=== PATIENT | male | born 1950 | race Hispanic/Latino ===

== ENCOUNTER 2017-12-12 09:04 | Observation (INO) | payer MEDICARE, OTHER ==
[2017-12-12 10:04] LABS: BASOPHILS % (AUTO) 0.7 % (0.0-5.0); EOSINOPHILS % (AUTO) 1.1 % (0.0-8.0); LYMPHOCYTES % (AUTO) 16.7 % (21.0-51.0); MEAN CORPUSCULAR HEMOGLOBIN 30.5 pg (27.0-33.0); MEAN CORPUSCULAR HGB CONC 34.8 g/dL (32.0-36.0); MEAN CORPUSCULAR VOLUME 87.5 fL (79-99); MONOCYTES % (AUTO) 7.2 % (3.0-13.0); NEUTROPHILS % (AUTO) 74.3 % (40.0-77.0); PLATELET COUNT (AUTO) 213 K/uL (130-400); RED BLOOD CELL COUNT(AUTO) 5.14 MIL/uL (4.50-6.20); RED CELL DISTRIBUTION WIDTH 13.6 % (11.0-15.5); WHITE BLOOD COUNT (AUTO) 9.1 K/uL (4.8-10.8)
[2017-12-12 10:16] LABS: POTASSIUM 3.4 mmol/L (3.5-5.1)
[2017-12-12 10:20] LABS: ALBUMIN 3.8 g/dL (3.5-5.0); BILIRUBIN,TOTAL 0.6 mg/dL (0.2-1.0); TOTAL PROTEIN, SERUM 7.3 g/dL (6.0-8.3)
[2017-12-12 11:00] LABS: INR 0.94 (0.85-1.15); PARTIAL THROMBOPLASTIN TIME 26.1 SEC (26.3-35.5); PROTHROMBIN TIME 9.9 SEC (9.6-11.6)
[2017-12-12 11:04] LABS: BILIRUBIN,URINE Negative (NEGATIVE); COLOR,URINE Yellow (YELLOW); GLUCOSE, URINE (UA) Negative (NEGATIVE); KETONES,URINE Negative (NEGATIVE); LEUKOCYTE ESTERASE ,URINE Negative (NEGATIVE); NITRATE,URINE Negative (NEGATIVE); OCCULT BLOOD,URINE Negative (NEGATIVE); PH,URINE 7.5 (5.0-8.0); PROTEIN,URINE Negative (NEGATIVE)
[2017-12-12 11:06] LABS: APPEARANCE,URINE CLEAR (CLEAR)
[2017-12-12] MEDS ORDERED: POTASSIUM CHLORIDE 20 MEQ ERTAB PO PRN (11:15)
[2017-12-12] MEDS ORDERED: ACETAMINOPHEN 325 MG TAB PO PRN ×2 (11:15)
[2017-12-12] MEDS ORDERED: POTASSIUM CHLORIDE 10% ELIXIR 20 MEQ/15 ML UDCUP PO PRN (11:15)
[2017-12-12] MEDS ORDERED: POTASSIUM CHLORIDE 20MEQ/100ML 100 ML IV PRN (11:15)
[2017-12-12] MEDS ORDERED: LIDOCAINE HCL-MPF 1% 2ML VIAL IVP PRN (11:15)
[2017-12-12] MEDS ORDERED: MORPHINE SULFATE 2 MG/ML 1ML SYG IVP PRN (11:15)
[2017-12-12] MEDS ORDERED: ONDANSETRON HCL 4 MG/2 ML VIAL IV PRN (11:15)
[2017-12-12] MEDS ORDERED: NITROGLYCERIN 0.4 MG SL TAB SL PRN (11:15)
[2017-12-12] MEDS ORDERED: MAG HYDROX/AL HYDROX/SIMETH ES 30 ML SUSP UDCUP PO PRN (11:15)
[2017-12-12] MEDS ORDERED: ACETAMINOPHEN-CODEINE 300/30MG TAB PO PRN ×2 (11:15)
[2017-12-12] MEDS ORDERED: GUAIFENESIN-DM 200/20 MG 10 ML PO PRN (11:15)
[2017-12-12] MEDS ORDERED: LACTULOSE 20 GM/30 ML UDCUP PO PRN (11:15)
[2017-12-12] MEDS ORDERED: MORPHINE SULFATE 4 MG/1ML SYG IVP PRN (11:15)
[2017-12-12] MEDS ORDERED: HYDRALAZINE HCL 20 MG/ML VIAL IV PRN (11:15)
[2017-12-12 12:00] VITALS: BP 156/73
[2017-12-12 12:00] LABS: HEMATOCRIT 44.6 % (42-54); MEAN CORPUSCULAR HEMOGLOBIN 30.5 pg (27.0-33.0); MEAN CORPUSCULAR HGB CONC 34.8 g/dL (32.0-36.0); MEAN CORPUSCULAR VOLUME 87.7 fL (79-99); PLATELET COUNT (AUTO) 230 K/uL (130-400); RED BLOOD CELL COUNT(AUTO) 5.09 MIL/uL (4.50-6.20); RED CELL DISTRIBUTION WIDTH 13.3 % (11.0-15.5); WHITE BLOOD COUNT (AUTO) 8.8 K/uL (4.8-10.8)
[2017-12-12] MEDS ORDERED: AMLO5TAB4 PO (12:04)
[2017-12-12] MEDS ORDERED: ASPI-1197 PO (12:04)
[2017-12-12 12:17] LABS: INR 0.93 (0.85-1.15); PROTHROMBIN TIME 9.8 SEC (9.6-11.6)
[2017-12-12 12:28] LABS: ALBUMIN 3.7 g/dL (3.5-5.0); BILIRUBIN,TOTAL 0.5 mg/dL (0.2-1.0); CREATININE 0.9 mg/dL (0.5-1.5); POTASSIUM 3.6 mmol/L (3.5-5.1); TOTAL PROTEIN, SERUM 7.2 g/dL (6.0-8.3)
[2017-12-12 16:00] VITALS: BP 139/71
[2017-12-12 19:59] LABS: APPEARANCE,URINE Clear (CLEAR); BILIRUBIN,URINE Negative (NEGATIVE); COLOR,URINE Yellow (YELLOW); GLUCOSE, URINE (UA) Negative (NEGATIVE); KETONES,URINE Negative (NEGATIVE); LEUKOCYTE ESTERASE ,URINE Negative (NEGATIVE); NITRATE,URINE Negative (NEGATIVE); OCCULT BLOOD,URINE Negative (NEGATIVE); PH,URINE 6.5 (5.0-8.0); PROTEIN,URINE Negative (NEGATIVE)
[2017-12-12 20:00] VITALS: BP 163/77
[2017-12-12] MEDS: FAMOTIDINE 20MG TAB 20 MG TAB PO SCH (22:27)
[2017-12-12] MEDS: METOPROLOL TARTRATE 25 MG TAB PO SCH (22:27)
[2017-12-13] VITALS: BP 127/73
[2017-12-13 04:00] VITALS: BP 136/76
[2017-12-13 04:58] LABS: HEMATOCRIT 40.5 % (42-54); MEAN CORPUSCULAR HEMOGLOBIN 30.9 pg (27.0-33.0); MEAN CORPUSCULAR HGB CONC 35.5 g/dL (32.0-36.0); MEAN CORPUSCULAR VOLUME 87.2 fL (79-99); PLATELET COUNT (AUTO) 226 K/uL (130-400); RED BLOOD CELL COUNT(AUTO) 4.65 MIL/uL (4.50-6.20); RED CELL DISTRIBUTION WIDTH 13.5 % (11.0-15.5); WHITE BLOOD COUNT (AUTO) 7.1 K/uL (4.8-10.8)
[2017-12-13 05:20] LABS: CREATININE 0.9 mg/dL (0.5-1.5); POTASSIUM 3.8 mmol/L (3.5-5.1)
[2017-12-13 07:00] VITALS: BP 138/75
[2017-12-13] MEDS ORDERED: ATORVASTATIN CALCIUM 40 MG TABLET PO SCH (09:00)
[2017-12-13] MEDS ORDERED: ENOXAPARIN SODIUM 40 MG/0.4 ML SYRINGE SQ SCH (09:00)
[2017-12-13] MEDS ORDERED: ASPIRIN 325 MG TABLET PO SCH (09:00)
[2017-12-13] MEDS: FAMOTIDINE 20MG TAB 20 MG TAB PO SCH (09:12)
[2017-12-13] MEDS: METOPROLOL TARTRATE 25 MG TAB PO SCH (09:12)
[2017-12-13] MEDS: TRAMADOL HCL 50 MG TABLET PO PRN ×2 (09:28→11:57)
[2017-12-13] MEDS ORDERED: NICOTINE 21 MG/ 24 HR PATCH TD SCH (11:30)
[2017-12-13 12:06] VITALS: BP 137/73
[2017-12-13 16:00] VITALS: BP 159/79
[2017-12-14] MEDS ORDERED: AMLODIPINE BESYLATE 5 MG TAB PO SCH (09:00)
[2017-12-14] MEDS ORDERED: ASPIRIN 81MG TAB.CHEW PO SCH (09:00)
[2017-12-24] MEDS ORDERED: ATOR40TA71 PO (11:55)
[2018-01-06] MEDS ORDERED: TRAM50TA4 PO (14:47)
== END 2017-12-13 19:25 | disposition home or self-care (01) ==
LOC: EDH 09:04 → 3DH 09:18
PROVIDERS: ADMIT Internal Medicine; ATTEND Internal Medicine
DX: I73.9 Peripheral vascular disease, unspecified (principal); I10 Essential (primary) hypertension; F17.210 Nicotine dependence, cigarettes, uncomplicated; Z82.49 Family history of ischemic heart disease and other diseases of the circulatory system
CPT/HCPCS: 36415 ×2; 80048; 80053 ×2; 81003; 85025; 85027 ×2; 85610 ×2; 85730; 93925; 96372; 99285; A4510; G0378 ×34; J1650

== ENCOUNTER 2017-12-26 05:30 | Day surgery (SDC) | payer MEDICARE, OTHER ==
[2017-12-24 11:33] LABS: APPEARANCE,URINE Clear (CLEAR); BILIRUBIN,URINE Negative (NEGATIVE); COLOR,URINE Yellow (YELLOW); GLUCOSE, URINE (UA) Negative (NEGATIVE); KETONES,URINE Negative (NEGATIVE); LEUKOCYTE ESTERASE ,URINE Negative (NEGATIVE); NITRATE,URINE Negative (NEGATIVE); OCCULT BLOOD,URINE Negative (NEGATIVE); PROTEIN,URINE Negative (NEGATIVE)
[2017-12-24 11:35] LABS: BASOPHILS % (AUTO) 0.8 % (0.0-5.0); EOSINOPHILS % (AUTO) 1.4 % (0.0-8.0); HEMATOCRIT 46.3 % (42-54); LYMPHOCYTES % (AUTO) 19.3 % (21.0-51.0); MEAN CORPUSCULAR HGB CONC 34.1 g/dL (32.0-36.0); MONOCYTES % (AUTO) 9.2 % (3.0-13.0); NEUTROPHILS % (AUTO) 69.3 % (40.0-77.0); PLATELET COUNT (AUTO) 269 K/uL (130-400); RED BLOOD CELL COUNT(AUTO) 5.27 MIL/uL (4.50-6.20); RED CELL DISTRIBUTION WIDTH 13.6 % (11.0-15.5); WHITE BLOOD COUNT (AUTO) 9.2 K/uL (4.8-10.8)
[2017-12-24 11:40] LABS: POTASSIUM 4.2 mmol/L (3.5-5.1)
[2017-12-24 11:52] VITALS: BP 140/71
[2017-12-24 12:05] LABS: INR 0.96 (0.85-1.15); PARTIAL THROMBOPLASTIN TIME 24.5 SEC (26.3-35.5); PROTHROMBIN TIME 9.9 SEC (9.6-11.6)
[2017-12-26] VITALS (13 sets, daily range): BP systolic 124–162; BP diastolic 63–85
[~2017-12-26] VITALS: Ht 180.3 cm; Wt 83.4 kg
[~2017-12-26 05:30] MED LIST: AMLO5TAB4 PO; ASPI-1197 PO; ATOR40TA71 PO
[2017-12-26] MEDS ORDERED: SODIUM CHLORIDE 0.9% 1000ML 1,000 ML IV ONE (06:17)
[2017-12-26] MEDS ORDERED: HEPARIN SODIUM 1000UNIT/ML 10ML VIAL ONE (07:13)
[2017-12-26] MEDS ORDERED: ISOVUE-300 100 ML VIAL IV ONE (07:13)
[2017-12-26] MEDS ORDERED: NITROGLYCERIN 5 MG/ML 10 ML VIAL IV ONE (07:13)
[2017-12-26] MEDS ORDERED: LIDOCAINE HCL 2% 20ML ONE (07:14)
[2017-12-26] MEDS ORDERED: SODIUM CHLORIDE 0.9% 1000ML 1,000 ML IV SCH (08:47)
[2017-12-26] MEDS ORDERED: ACETAMINOPHEN EXTRA STRENGTH 500 MG TABLET PO SCH (09:30)
[2018-01-06] MEDS ORDERED: TRAM50TA4 PO (14:47)
== END 2017-12-26 14:50 | disposition home or self-care (01) ==
LOC: DAH 05:30
PROVIDERS: ATTEND Internal Medicine Cardiovascular Disease
DX: I73.89 Other specified peripheral vascular diseases (principal); I10 Essential (primary) hypertension; F17.200 Nicotine dependence, unspecified, uncomplicated; Z82.49 Family history of ischemic heart disease and other diseases of the circulatory system; Z79.82 Long term (current) use of aspirin; Z79.899 Other long term (current) drug therapy
CPT/HCPCS: 36246; 36415; 71045; 75625; 75716; 80048; 81003; 85025; 85610; 85730; 93005; A4606; C1760; C1769; C1894; J1644; J3490 ×2; J7030; Q9967

== ENCOUNTER 2018-01-07 10:30 | Inpatient (IN) | payer MEDICARE ==
[2018-01-06 14:28] LABS: HEMOGLOBIN A1C 5.6 % (4.0-6.0)
[2018-01-06 14:30] VITALS: BP 161/71
[2018-01-06 14:39] LABS: BASOPHILS % (AUTO) 1.3 % (0.0-5.0); EOSINOPHILS % (AUTO) 1.7 % (0.0-8.0); HEMATOCRIT 45.1 % (42-54); LYMPHOCYTES % (AUTO) 23.6 % (21.0-51.0); MEAN CORPUSCULAR HEMOGLOBIN 30.7 pg (27.0-33.0); MEAN CORPUSCULAR HGB CONC 34.9 g/dL (32.0-36.0); MONOCYTES % (AUTO) 7.7 % (3.0-13.0); NEUTROPHILS % (AUTO) 65.7 % (40.0-77.0); NUCLEATED RED BLOOD CELLS 0.1 % (0.0-0.19); PLATELET COUNT (AUTO) 279 K/uL (130-400); RED BLOOD CELL COUNT(AUTO) 5.13 MIL/uL (4.50-6.20); RED CELL DISTRIBUTION WIDTH 13.2 % (11.0-15.5); WHITE BLOOD COUNT (AUTO) 8.9 K/uL (4.8-10.8)
[2018-01-06 14:40] LABS: INR 0.98 (0.85-1.15); PARTIAL THROMBOPLASTIN TIME 27.1 SEC (26.3-35.5); PROTHROMBIN TIME 10.3 SEC (9.6-11.6)
[2018-01-06 14:47] LABS: BILIRUBIN,TOTAL 0.6 mg/dL (0.2-1.0); CREATININE 1.1 mg/dL (0.5-1.5); POTASSIUM 4.2 mmol/L (3.5-5.1); TOTAL PROTEIN, SERUM 7.4 g/dL (6.0-8.3)
[~2018-01-07] VITALS: Ht 175.3 cm; Wt 77.1 kg
[~2018-01-07 10:30] MED LIST changes: +CEFUROXIME SODIUM 1.5 GM VIAL IVP SCH; +TRAM50TA4 PO
[2018-01-08] VITALS (23 sets, daily range): BP systolic 128–168; BP diastolic 60–80
[2018-01-08] MEDS: CEFUROXIME SODIUM 1.5 GM VIAL IVP SCH ×2 (08:30→11:55)
[2018-01-08] MEDS ORDERED: SODIUM CHLORIDE 0.9% 1000ML 1,000 ML IV ONE (08:37)
[2018-01-08] MEDS ORDERED: BACITRACIN 50,000 UNIT VIAL ONE (10:21)
[2018-01-08] MEDS ORDERED: OCTYL 2-CYANOACRYLATE 1 EACH TP ONE (10:21)
[2018-01-08] MEDS ORDERED: GLYCOPYRROLATE 0.2 MG/ML 5 ML VIAL ONE (11:14)
[2018-01-08] MEDS ORDERED: DEXAMETHASONE SOD PHOSPHATE 10MG/ML 1ML VIAL ONE (11:14)
[2018-01-08] MEDS ORDERED: FENTANYL CITRATE PF 50 MCG/1 ML 2ML VIAL ONE ×2 (11:15→12:15)
[2018-01-08] MEDS ORDERED: PROPOFOL 10 MG/ML 20ML VIAL IV ONE (11:15)
[2018-01-08] MEDS ORDERED: MIDAZOLAM HCL 1 MG/ML 2ML VIAL ONE (11:15)
[2018-01-08] MEDS ORDERED: LIDOCAINE PF 2% 5ML ABBOJECT ONE (11:15)
[2018-01-08] MEDS ORDERED: EPHEDRINE SULFATE 50 MG/ML AMPULE ONE (11:40)
[2018-01-08] MEDS ORDERED: THROMBIN-JMI 5000 UNIT/VIAL TP ONE (11:45)
[2018-01-08] MEDS ORDERED: ENOXAPARIN SODIUM 40 MG/0.4 ML SYRINGE SQ SCH ×2 (12:45→15:15)
[2018-01-08] MEDS ORDERED: ACETAMINOPHEN 325 MG TAB PO PRN (12:45)
[2018-01-08] MEDS ORDERED: CEFAZOLIN 2GM / 50 ML 50 ML IV SCH (12:45)
[2018-01-08] MEDS ORDERED: TRAMADOL HCL 50 MG TABLET PO PRN (12:45)
[2018-01-08] MEDS ORDERED: MAGNESIUM HYDROXIDE 30 ML/UDCUP PO PRN (12:45)
[2018-01-08] MEDS ORDERED: CEFAZOLIN SODIUM 1 GM VIAL IVP SCH (12:45)
[2018-01-08] MEDS ORDERED: MEPERIDINE-PF 25 MG/ML SYG ONE (14:15)
[2018-01-08] MEDS: CEFAZOLIN SODIUM 1 GM VIAL IVP SCH (15:22)
[2018-01-08] MEDS: HYDROCODONE/ACETAMINOPHEN 5/325 MG TAB PO PRN (15:24)
[2018-01-08] MEDS ORDERED: BENZOCAINE/MENTH/CETYLPYRD CL 1 EACH LOZENGE MM PRN (23:00)
[2018-01-08] MEDS ORDERED: BENZOCAINE/MENTH/CETYLPYRD CL 1 EACH LOZENGE MM ONE (23:58)
[2018-01-09 03:51] VITALS: BP 161/74
[2018-01-09 05:33] LABS: ALBUMIN 3.4 g/dL (3.5-5.0); BILIRUBIN,TOTAL 1.3 mg/dL (0.2-1.0); POTASSIUM 3.9 mmol/L (3.5-5.1); TOTAL PROTEIN, SERUM 6.8 g/dL (6.0-8.3)
[2018-01-09 07:31] VITALS: BP 160/77
[2018-01-09] MEDS: CEFAZOLIN SODIUM 1 GM VIAL IVP SCH ×2 (08:00)
[2018-01-09] MEDS: CLOPIDOGREL BISULFATE 75 MG TAB PO SCH (10:33)
[2018-01-09] MEDS: FAMOTIDINE 20MG TAB 20 MG TAB PO SCH ×2 (10:33→23:09)
[2018-01-09] MEDS: ENOXAPARIN SODIUM 40 MG/0.4 ML SYRINGE SQ SCH (10:35)
[2018-01-09 11:05] VITALS: BP 148/87
[2018-01-09 12:45] LABS: APPEARANCE,URINE Clear (CLEAR); BILIRUBIN,URINE Negative (NEGATIVE); COLOR,URINE Dark Yellow (YELLOW); GLUCOSE, URINE (UA) Negative (NEGATIVE); KETONES,URINE Negative (NEGATIVE); LEUKOCYTE ESTERASE ,URINE Negative (NEGATIVE); NITRATE,URINE Negative (NEGATIVE); OCCULT BLOOD,URINE Negative (NEGATIVE); PROTEIN,URINE Negative (NEGATIVE)
[2018-01-09 13:04] LABS: BACTERIA,URINE Rare /HPF (None Seen); SQUAMOUS EPITHELIAL CELL,UR Rare /HPF (0-2); WBC,URINE 0-1 /HPF (0-1)
[2018-01-09] MEDS: PHENAZOPYRIDINE HCL 200 MG TABLET PO SCH ×2 (13:27→23:09)
[2018-01-09] MEDS ORDERED: CEFAZOLIN SODIUM 1 GM VIAL IVP SCH (13:45)
[2018-01-09 16:21] VITALS: BP 163/80
[2018-01-09] MEDS: HYDROCODONE/ACETAMINOPHEN 5/325 MG TAB PO PRN (17:25)
[2018-01-09] MEDS: AMLODIPINE BESYLATE 5 MG TAB PO SCH (17:48)
[2018-01-09 19:36] VITALS: BP 144/80
[2018-01-09] MEDS: ATORVASTATIN CALCIUM 40 MG TABLET PO SCH (23:09)
[2018-01-09 23:30] VITALS: BP 135/90
[2018-01-10] MEDS: HYDROCODONE/ACETAMINOPHEN 5/325 MG TAB PO PRN (03:34)
[2018-01-10 04:00] VITALS: BP 149/69
[2018-01-10 05:28] LABS: HEMATOCRIT 38.6 % (42-54); MEAN CORPUSCULAR HEMOGLOBIN 30.5 pg (27.0-33.0); MEAN CORPUSCULAR HGB CONC 34.9 g/dL (32.0-36.0); MEAN CORPUSCULAR VOLUME 87.4 fL (79-99); PLATELET COUNT (AUTO) 221 K/uL (130-400); RED BLOOD CELL COUNT(AUTO) 4.42 MIL/uL (4.50-6.20); RED CELL DISTRIBUTION WIDTH 13.2 % (11.0-15.5); WHITE BLOOD COUNT (AUTO) 11.3 K/uL (4.8-10.8)
[2018-01-10 05:38] LABS: POTASSIUM 3.7 mmol/L (3.5-5.1)
[2018-01-10 08:10] VITALS: BP 146/78
[2018-01-10] MEDS ORDERED: CEFTRIAXONE 1GM/D5W 50ML 50 ML IV SCH (08:45)
[2018-01-10] MEDS ORDERED: AMLODIPINE BESYLATE 5 MG TAB PO SCH (09:00)
[2018-01-10] MEDS ORDERED: TAMSULOSIN HCL 0.4 MG CAP.ER.24H ONE (10:31)
[2018-01-10] MEDS: CLOPIDOGREL BISULFATE 75 MG TAB PO SCH (10:34)
[2018-01-10] MEDS: FAMOTIDINE 20MG TAB 20 MG TAB PO SCH ×2 (10:34→22:07)
[2018-01-10] MEDS: ASPIRIN 81MG TAB.CHEW PO SCH (10:34)
[2018-01-10] MEDS: TAMSULOSIN HCL 0.4 MG CAP.ER.24H PO SCH (10:35)
[2018-01-10] MEDS: CEFTRIAXONE SODIUM 1 GM IVP SCH (10:35)
[2018-01-10] MEDS: AMLODIPINE BESYLATE 5 MG TAB PO SCH (10:35)
[2018-01-10] MEDS: PHENAZOPYRIDINE HCL 200 MG TABLET PO SCH ×3 (10:35→22:07)
[2018-01-10] MEDS: ENOXAPARIN SODIUM 40 MG/0.4 ML SYRINGE SQ SCH (10:36)
[2018-01-10 12:15] VITALS: BP 124/74
[2018-01-10 16:09] VITALS: BP 153/73
[2018-01-10 19:58] VITALS: BP 135/73
[2018-01-10] MEDS: ATORVASTATIN CALCIUM 40 MG TABLET PO SCH (22:07)
[2018-01-10] MEDS: METOPROLOL TARTRATE 25 MG TAB PO SCH (22:07)
[2018-01-10 23:40] VITALS: BP 142/84
[2018-01-11 04:10] VITALS: BP 142/67
[2018-01-11 04:12] VITALS: BP 145/64
[2018-01-11 07:25] VITALS: BP 142/70
[2018-01-11] MEDS ORDERED: METO25 PO (08:34)
[2018-01-11] MEDS ORDERED: CLOP75TA14 PO (08:34)
[2018-01-11] MEDS ORDERED: AMOX-426 PO (08:34)
[2018-01-11] MEDS ORDERED: TAMS-1 PO (08:34)
[2018-01-11] MEDS: AMLODIPINE BESYLATE 5 MG TAB PO SCH (09:44)
[2018-01-11] MEDS: TAMSULOSIN HCL 0.4 MG CAP.ER.24H PO SCH (09:45)
[2018-01-11] MEDS: CEFTRIAXONE SODIUM 1 GM IVP SCH (09:45)
[2018-01-11] MEDS: METOPROLOL TARTRATE 25 MG TAB PO SCH (09:45)
[2018-01-11] MEDS: ASPIRIN 81MG TAB.CHEW PO SCH (09:45)
[2018-01-11] MEDS: CLOPIDOGREL BISULFATE 75 MG TAB PO SCH (09:45)
[2018-01-11] MEDS: FAMOTIDINE 20MG TAB 20 MG TAB PO SCH (09:45)
[2018-01-11] MEDS: PHENAZOPYRIDINE HCL 200 MG TABLET PO SCH ×2 (09:45→13:22)
[2018-01-11] MEDS: ENOXAPARIN SODIUM 40 MG/0.4 ML SYRINGE SQ SCH (09:46)
[2018-01-11 11:42] VITALS: BP 137/71
[2018-01-11 16:34] VITALS: BP 122/67
== END 2018-01-11 18:50 | disposition home or self-care (01) | DRG 254 ==
LOC: EDSTATUS 10:30 → DAHIP 01-08 07:27 → 2DH 01-08 14:06
PROVIDERS: ADMIT Internal Medicine; ATTEND Internal Medicine
PROC: 041L09L Bypass Left Femoral Artery to Popliteal Artery with Autologous Venous Tissue, Open Approach (ICD-10-PCS; principal; 2018-01-08 11:14)
DX: I73.9 Peripheral vascular disease, unspecified (principal); E78.5 Hyperlipidemia, unspecified; I10 Essential (primary) hypertension; Z87.891 Personal history of nicotine dependence; Z79.82 Long term (current) use of aspirin; Z79.899 Other long term (current) drug therapy
CPT/HCPCS: 36415; 71046; 80048; 80053; 81001; 82948; 83036; 85025; 85027; 85610; 85730; 86850; 86900; 86901; 86922; 87088; 93005; 97039; A4218; A4344; J0690; J0696; J0697; J1100; J1644; J1650; J2001; J2175; J2250; J2704; J3010; J3490; J7030; J7040